=== PATIENT | female | born 1990 | race African-American/Black ===

== ENCOUNTER 2018-08-20 22:43 | Emergency (ER) | payer MEDICAID ==
[~2018-08-20] VITALS: Ht 160 cm; Wt 77.1 kg
[~2018-08-20 22:43] MED LIST: HYDR-1421 PO; IBU800T PO; PRENCAP21 PO
[2018-08-21 02:45] VITALS: BP 130/86
[2018-08-21] MEDS ORDERED: BACLOFEN 10 MG TAB PO ONE (03:30)
[2018-08-21] MEDS ORDERED: HYDROcodone-ACET 7.5/325MG TAB PO ONE (03:30)
== END 2018-08-21 04:04 | disposition home or self-care (01) ==
LOC: EDBD 22:43 → ER 22:49
DX: S80.12XA Contusion of left lower leg, initial encounter (principal); Z79.899 Other long term (current) drug therapy; V49.49XA Driver injured in collision with other motor vehicles in traffic accident, initial encounter; Y93.89 Activity, other specified; Y99.8 Other external cause status; Y92.488 Other paved roadways as the place of occurrence of the external cause
CPT/HCPCS: 73590